=== PATIENT | female | born 1955 | race Caucasian/White ===

== ENCOUNTER 2017-12-09 14:18 | Emergency (ER) | payer MEDICARE, MEDICAID ==
[~2017-12-09] VITALS: Ht 165.1 cm; Wt 83.2 kg
[2017-12-09 14:20] VITALS: BP 175/105
[2017-12-09] MEDS ORDERED: LIDOCAINE 1%-EPI 1:100K, 30ML ONE (14:40)
[2017-12-09] MEDS ORDERED: DIPH,PERTUSS(ACELL),TET VAC/PF 0.5 ML IM-VACC ONE ×2 (14:58→15:00)
[2017-12-09] MEDS ORDERED: LIDOCAINE 1%-EPI 1:100K, 20ML SQ ONE (15:00)
== END 2017-12-09 15:17 | disposition home or self-care (01) ==
LOC: ED 15:00
DX: L02.31 Cutaneous abscess of buttock (principal)
CPT/HCPCS: 10060; 90471; 90715; 99283